=== PATIENT | female | born 1980 | race Caucasian/White ===

== ENCOUNTER 2021-05-02 16:09 | Inpatient (IN) | payer MEDICAID, SELFPAY ==
[2021-05-02 16:51] VITALS: BP 124/78; PULSE 78; RESP 17; TEMP 37.1; O2SAT 98
[2021-05-02 16:52] VITALS: BMI 27.6
[2021-05-02] MEDS: multivitamin therapeutic Tablet 1 TAB PO (18:57)
[2021-05-02] MEDS: OLANZapine 5 mg ODT PO (19:32)
[2021-05-02] MEDS: hyDROXYzine 25 mg Capsule 50 MG PO (19:32)
[2021-05-02 19:57] VITALS: BP 113/76; PULSE 78; RESP 16; TEMP 36.7; O2SAT 98
[2021-05-02] MEDS: ARIPiprazole 10 mg Tablet PO (21:31)
[2021-05-02] MEDS: trazodone 100 mg Tablet PO (21:31)
[2021-05-02] MEDS: gabapentin 300 mg Capsule 600 MG PO (21:31)
[2021-05-02] MEDS: BuSPIRONE 10 mg Tablet 20 MG PO (21:31)
[2021-05-03 06:00] VITALS: BP 82/45; PULSE 83; RESP 16; TEMP 36.6; O2SAT 98
[2021-05-03] MEDS: pantoprazole DR 40 mg Tablet PO (09:01)
[2021-05-03] MEDS: gabapentin 300 mg Capsule 600 MG PO ×3 (09:01→20:54)
[2021-05-03] MEDS: folic acid 1 mg Tablet PO (09:01)
[2021-05-03] MEDS: escitalopram 10 mg Tablet 20 MG PO (09:01)
[2021-05-03] MEDS: BuSPIRONE 10 mg Tablet 20 MG PO ×3 (09:01→20:54)
--- NOTE | 2021-05-03 09:29 | P.NPUHP_ITS ---
Providers/Chief Complaint Admitting Physician: Julian Flores MD Chief Complaint: OVERDOSE HPI NPU History of Present Illness Aria Badillo is a 41 year old female who presented to an outside hospital with reported concerns for alcohol intoxication and possible misuse of prescription medications, either intentionally or unintentionally, and self- injurious behavior versus suicide attempt. She was evaluated there for acute intoxication and additionally they reported she took a handful of medications, including Trazodone, Lexapro and Protonix. She was monitored for cardiac arrhythmia, bradycardia, etc. and monitored until she had gotten through half- lives for the medications. Her blood alcohol level, when she arrived at the outside hospital, was 540, and she had a very extensive deliberate cut to her upper right extremity; it did not involve deep structures but did involve single layer stitches/sutures number 10. She was transferred to [facility] and admitted to the neuropsychiatric unit for definitive treatment of those issues. She presents today reporting that she has had a significant issue with alcohol for some time. She relapsed and has been drinking a fifth of alcohol daily, at least. She denies any intentional ingestion but did endorse being suicidal, and did endorse cutting but denied it as a suicide attempt, reporting she has had issues with self-injurious behaviors for some time. She has had previous psychiatric hospitalization. She reports that she does not smoke cigarettes or use any other type of drugs. She endorses a history of anxiety, bipolar disorder, and depression. She reports that she has been taking her medication. Her medications were identified as Abilify, BuSpar, Lexapro, Neurontin, Trazodone, and Pantoprazole. She could not really identify if there had been any non-adherence to the medication, and so we discussed initially starting with her home medications. One issue we crossed was that she reports that the medications were not really working for her anxiety, and she said that the outside hospital gave her Xanax and that she was hoping that would be continued, but they did not write for Xanax when she left. PSYCHIATRIC HISTORY: As above. SUBSTANCE ABUSE HISTORY: As above. FAMILY HISTORY: She was not a great historian, so family history and some of the other histories were limited. DEVELOPMENTAL HISTORY: She denies any issues with her or delivery. She reports she learned to walk and talk and met her developmental milestones on time. She did report that she had some learning difficulties but had no clarity with that. PSYCHOSOCIAL HISTORY: LEGAL HISTORY: Denied. MEDICAL HISTORY: GERD and the lacerations. No other historical data. Meds NPU Home Medications Medication Instructions Recorded Confirmed Last Taken Type Multivitamin Therapeutic See Rx Instructions .ROUTE .COMPLEX 05/02/21 05/02/21 05/02/21 History aripiprazole [Abilify] 10 mg PO BEDTIME 05/02/21 05/02/21 Unknown History buspirone 20 mg PO TID 05/02/21 05/02/21 05/02/21 History 0531 escitalopram oxalate [Lexapro] 20 mg PO DAILY 05/02/21 05/02/21 05/02/21 History 20 mg folic acid 1 mg PO DAILY 05/02/21 05/02/21 05/02/21 History gabapentin [Neurontin] 600 mg PO TID 05/02/21 05/02/21 05/02/21 History 600 mg pantoprazole [Protonix] 40 mg PO DAILY 05/02/21 05/02/21 05/02/21 History 40 mg trazodone 100 mg PO BEDTIME 05/02/21 05/02/21 05/01/21 History 100 mg Allergies Allergy/AdvReac Type Severity Reaction Status Date / Time Penicillins Allergy Intermediate ALGY-Rash Verified 05/02/21 16:59 Sulfa (Sulfonamide Allergy Intermediate ALGY-Rash Verified 05/02/21 16:58 Antibiotics) PFSH NPU PFSH: Social History (Updated 05/02/21 @ 17:19 by Margo Coley RN) Alcohol intake: current Alcohol intake frequency: 3 or more drinks per day Alcohol type: hard liquor Desire information about alcohol rehabilitation?: Yes (wants to go to rehab) Counseling given: Yes Mental Status Exam MSE Comments: This is an overweight versus obese, white female, with hospital scrubs on, with limited grooming and eye contact. No abnormal movements, except for mild psychomotor agitation. Cooperative with exam in no acute distress. Speech was decreased rate and volume. Mood described as anxious; affect congruent. Thought process, organized. Thought content: patient denied any suicidal or homicidal ideation, there were no delusions reported or noted, patient denied any auditory or visual hallucinations. Attention, concentration, and memory appear intact but none were formally tested. She is alert and oriented times three. Insight and judgment are limited. Impulse control is impaired. Vitals/I&O/Wt Last Vital Signs Temp 97.8 F 05/03/21 06:00 Pulse 83 05/03/21 06:00 Resp 16 05/03/21 06:00 BP 82/45 05/03/21 06:00 Pulse Ox 98 05/03/21 06:00 Weight last 48 hrs Weight 73 kg A&P Assessment and plan (1) Alcohol dependence: Status: Acute (2) Anxiety: Status: Acute (3) Cluster B personality disorder in adult: Status: Acute Additional A&P Information This is a 41-year-old, white female, with a long history of alcohol addiction and behavioral dysregulation, who presents after an alcohol level of 540, and a self-inflicted cut to her right arm, at an outside hospital. 1. Continue current medication. 2. Encourage individual, group, and milieu therapy. 3. Continue q-15 minute checks for safety. 4. Recommend sober living treatment at the highest level of care to which the patient is willing to commit. Involuntary Hold Information 96 Hour Hold: 96 Hour Involuntary Admission: No Attestations NPU Medical Necessity Statement*: Inpatient hospitalization is medically necessary and the clinically appropriate intervention, at this time. We will monitor medications and make changes as indicated. Patient will be in the hospital for over two midnights. Likely length of stay is three to five days. Coding Level of Care Code Acute [employer] Officer for Kirsten Callaway Diagnoses Alcohol dependence F10.20 Anxiety F41.9 Cluster B personality disorder in adult F60.9
[2021-05-03] MEDS: hyDROXYzine 25 mg Capsule 50 MG PO ×2 (10:40→20:56)
[2021-05-03 14:00] VITALS: BP 85/52; PULSE 65; RESP 17; TEMP 36.9; O2SAT 98
[2021-05-03] MEDS: OLANZapine 5 mg ODT PO ×2 (14:17→20:54)
--- NOTE | 2021-05-03 14:20 | PC.NURSE ---
Pt reports anxiety and requesting medication. Pt given PRN Zydis. Pt took medication without complication.
[2021-05-03] MEDS: trazodone 100 mg Tablet PO (20:54)
[2021-05-03] MEDS: ARIPiprazole 10 mg Tablet PO (20:54)
[2021-05-03 21:22] VITALS: BP 91/59; PULSE 108; RESP 18; TEMP 36.7; O2SAT 96
[2021-05-04 06:00] VITALS: BP 91/60; PULSE 113; RESP 18; TEMP 37.2; O2SAT 98; BMI 27.6
[2021-05-04] MEDS: hyDROXYzine 25 mg Capsule 50 MG PO ×3 (06:36→18:30)
[2021-05-04] MEDS: OLANZapine 5 mg ODT PO (06:36)
[2021-05-04] MEDS: gabapentin 300 mg Capsule 600 MG PO ×3 (08:39→20:56)
[2021-05-04] MEDS: BuSPIRONE 10 mg Tablet 20 MG PO ×3 (08:40→20:56)
[2021-05-04] MEDS: pantoprazole DR 40 mg Tablet PO (08:40)
[2021-05-04] MEDS: folic acid 1 mg Tablet PO (08:40)
[2021-05-04] MEDS: escitalopram 10 mg Tablet 20 MG PO (08:40)
--- NOTE | 2021-05-04 13:13 | P.NPUPN_ITS ---
Subjective NPU Subjective: Interval history: Presents today reporting that she is invested in the idea of getting to some treatment facility to try to get herself back on track. We continue to discuss the fact that [facility] is likely a bad choice for her treatment given her alcohol addiction. We discussed working with treatment team the morning to make sure to be no all the options available for her ongoing treatment. She reports is tolerating her medications well otherwise. Mental Status Exam MSE Comments: This is an overweight versus obese, white female, with hospital scrubs on, with limited grooming and eye contact. No abnormal movements, except for mild psychomotor agitation. Cooperative with exam in no acute distress. Speech was decreased rate and volume. Mood described as anxious; affect congruent. Thought process, organized. Thought content: patient denied any suicidal or homicidal ideation, there were no delusions reported or noted, patient denied any auditory or visual hallucinations. Attention, concentration, and memory appear intact but none were formally tested. She is alert and oriented times three. Insight and judgment are limited. Impulse control is impaired. Vitals/I&O/Wt Last Vital Signs Temp 98.9 F 05/04/21 06:00 Pulse 113 H 05/04/21 06:00 Resp 18 05/04/21 06:00 BP 91/60 05/04/21 06:00 Pulse Ox 98 05/04/21 06:00 Weight last 48 hrs Weight 73 kg A&P Additional A&P Information (1) Alcohol dependence: (2) Anxiety: (3) Cluster B personality disorder in adult: Additional A&P Information This is a 41-year-old, white female, with a long history of alcohol addiction and behavioral dysregulation, who presents after an alcohol level of 540, and a self-inflicted cut to her right arm, at an outside hospital. 1. Continue current medication. 2. Encourage individual, group, and milieu therapy. 3. Continue q-15 minute checks for safety. 4. Recommend sober living treatment at the highest level of care to which the patient is willing to commit. Involuntary Hold Information 96 Hour Hold: 96 Hour Involuntary Admission: No Attestations NPU Medical Necessity Statement*: Inpatient hospitalization is medically necessary and the clinically appropriate intervention, at this time. We will monitor medications and make changes as indicated. Likely length of stay is 2-4 days. Coding Level of Care Code Acute Director Patient Accounting for Kirsten Callaway
[2021-05-04 14:00] VITALS: BP 93/57; PULSE 68; RESP 18; TEMP 36.6; O2SAT 98
[2021-05-04] MEDS: multivitamin therapeutic Tablet 1 TAB PO (17:16)
[2021-05-04 20:26] VITALS: BP 110/74; PULSE 62; RESP 14; TEMP 37.1; O2SAT 95
[2021-05-04] MEDS: ARIPiprazole 10 mg Tablet PO (20:56)
[2021-05-04] MEDS: trazodone 100 mg Tablet PO (20:57)
[2021-05-05] MEDS: OLANZapine 5 mg ODT PO ×2 (03:36→17:39)
--- NOTE | 2021-05-05 04:07 | PC.NURSE ---
Patient was given 5mg Zyprexa Zydus for extreme anxiety due to other paints being VERY loud and MANIC, pacing the fountain and generally being inconsiderate ( even though that patient has been canceled continually )
[2021-05-05 06:00] VITALS: BP 105/70; PULSE 110; RESP 18; TEMP 36.9; O2SAT 98
[2021-05-05] MEDS: hyDROXYzine 25 mg Capsule 50 MG PO ×2 (06:03→12:28)
[2021-05-05] MEDS: gabapentin 300 mg Capsule 600 MG PO ×3 (09:49→21:45)
[2021-05-05] MEDS: pantoprazole DR 40 mg Tablet PO (09:49)
[2021-05-05] MEDS: folic acid 1 mg Tablet PO (09:49)
[2021-05-05] MEDS: BuSPIRONE 10 mg Tablet 20 MG PO ×3 (09:50→21:45)
[2021-05-05] MEDS: escitalopram 10 mg Tablet 20 MG PO (09:50)
--- NOTE | 2021-05-05 12:31 | PC.NURSE ---
Pt reports anxiety 01/31. Pt reports she just spoke to Bingo Cashier and this caused her anxiety to increase. Pt requested anxiety medication. Pt given Vistaril 50 mg PO without complication.
--- NOTE | 2021-05-05 12:48 | NPU.GN ---
[facility] Unit Group Topic:Skinny Barrel / Discussion General Mood of Group:Aria did attend and participate in group. She was polite and social with others . Her hygiene was ok.
--- NOTE | 2021-05-05 13:23 | P.NPUPN_ITS ---
Subjective NPU Subjective: Interval history: Patient presents today reporting that she is feeling a little better. She reports that she did get a chance to talk to the treatment team and they are looking at options for sober living follow-up. She reports that she continues to have anxiety and that the difficult issue. We discussed the timeframe it might take for her 1/5 of liquor a day not have residual symptoms. However we discussed the possibility of adding propranolol 20 mg p.o. 3 times daily as needed and she understood and agreed proceed as documented in his note. Mental Status Exam MSE Comments: This is an overweight versus obese, white female, with hospital scrubs on, with limited grooming and eye contact. No abnormal movements. Cooperative with exam in no acute distress. Speech was decreased rate and volume. Mood described as anxious; affect congruent. Thought process, organized. Thought content: patient denied any suicidal or homicidal ideation, there were no delusions reported or noted, patient denied any auditory or visual hallucinations. Attention, concentration, and memory appear intact but none were formally tested. She is alert and oriented times three. Insight and judgment are limited. Impulse control is limited. Vitals/I&O/Wt Last Vital Signs Temp 98.4 F 05/05/21 06:00 Pulse 110 H 05/05/21 06:00 Resp 18 05/05/21 06:00 BP 105/70 05/05/21 06:00 Pulse Ox 98 05/05/21 06:00 A&P Additional A&P Information (1) Alcohol dependence: (2) Anxiety: (3) Cluster B personality disorder in adult: Additional A&P Information This is a 41-year-old, white female, with a long history of alcohol addiction and behavioral dysregulation, who presents after an alcohol level of 540, and a self-inflicted cut to her right arm, at an outside hospital. 1. Continue current medication. 2. Encourage individual, group, and milieu therapy. 3. Continue q-15 minute checks for safety. 4. Recommend sober living treatment at the highest level of care to which the patient is willing to commit. Involuntary Hold Information 96 Hour Hold: 96 Hour Involuntary Admission: No Attestations NPU Medical Necessity Statement*: Inpatient hospitalization is medically necessary and the clinically appropriate intervention, at this time. We will monitor medications and make changes as indicated. Likely length of stay is 2-4 days. Coding Level of Care Code Acute Community Health Outreach Worker for Chg Fwd
[2021-05-05 14:00] VITALS: BP 114/72; PULSE 67; RESP 18; TEMP 36.4; O2SAT 99
[2021-05-05] MEDS: multivitamin therapeutic Tablet 1 TAB PO (17:39)
[2021-05-05 21:33] VITALS: BP 112/75; PULSE 63; RESP 15; TEMP 36.7; O2SAT 96
[2021-05-05] MEDS: trazodone 100 mg Tablet PO (21:45)
[2021-05-05] MEDS: ARIPiprazole 10 mg Tablet PO (21:45)
[2021-05-06] MEDS: hyDROXYzine 25 mg Capsule 50 MG PO ×2 (05:58→12:02)
[2021-05-06 06:00] VITALS: BP 107/56; PULSE 99; RESP 18; TEMP 36.7; O2SAT 95
[2021-05-06] MEDS: BuSPIRONE 10 mg Tablet 20 MG PO ×3 (08:05→20:05)
[2021-05-06] MEDS: escitalopram 10 mg Tablet 20 MG PO (08:05)
[2021-05-06] MEDS: pantoprazole DR 40 mg Tablet PO (08:05)
[2021-05-06] MEDS: multivitamin therapeutic Tablet 1 TAB PO (08:05)
[2021-05-06] MEDS: gabapentin 300 mg Capsule 600 MG PO ×3 (08:05→20:05)
[2021-05-06] MEDS: folic acid 1 mg Tablet PO (08:05)
--- NOTE | 2021-05-06 13:09 | NPU.GN ---
[facility] Group Topic: Skinny Zhou General Mood of Group: Aria did attend and participate in group today. She was social and seemed to have a good mindset. Aria had good hygiene.
[2021-05-06 14:00] VITALS: BP 105/68; PULSE 62; RESP 16; TEMP 36.7; O2SAT 97
[2021-05-06] MEDS: OLANZapine 5 mg ODT PO (17:13)
--- NOTE | 2021-05-06 17:14 | PC.NURSE ---
Pt anxious and pacing the hallway with increasing speed. Pt given Zydis 5mg PO without complication.
--- NOTE | 2021-05-06 19:21 | P.NPUPN_ITS ---
Subjective NPU Subjective: Interval history: Patient presents today reporting that the efforts to get her into the regular Programs that she and the social work team were pursuing was not effective. She reports that this time her only option is to go home with outpatient services for drug and alcohol and or with connection coordinating limits available. She seems to be optimistic that she can stop drinking but we discussed our concerns about her level of drinking and the danger for bad outcome. We agreed we would discuss the possibility of discharge after the in the morning. Mental Status Exam MSE Comments: This is an overweight versus obese, white female, with hospital scrubs on, with limited grooming and eye contact. No abnormal movements. Cooperative with exam in no acute distress. Speech was decreased rate and volume. Mood described as feeling better; affect congruent. Thought process, organized. Thought content: patient denied any suicidal or homicidal ideation, there were no delusions reported or noted, patient denied any auditory or visual hallucinations. Attention, concentration, and memory appear intact but none were formally tested. She is alert and oriented times three. Insight and judgment are limited, but improving. Impulse control is limited. Vitals/I&O/Wt Last Vital Signs Temp 98.0 F 05/06/21 14:00 Pulse 62 05/06/21 14:00 Resp 16 05/06/21 14:00 BP 105/68 05/06/21 14:00 Pulse Ox 97 05/06/21 14:00 A&P Additional A&P Information (1) Alcohol dependence: (2) Anxiety: (3) Cluster B personality disorder in adult: Additional A&P Information This is a 41-year-old, white female, with a long history of alcohol addiction and behavioral dysregulation, who presents after an alcohol level of 540, and a self-inflicted cut to her right arm, at an outside hospital. 1. Continue current medication. 2. Encourage individual, group, and milieu therapy. 3. Continue q-15 minute checks for safety. 4. Recommend sober living treatment at the highest level of care to which the patient is willing to commit. Involuntary Hold Information 96 Hour Hold: 96 Hour Involuntary Admission: No Attestations NPU Medical Necessity Statement*: Inpatient hospitalization is medically necessary and the clinically appropriate intervention, at this time. We will monitor medications and make changes as indicated. Likely length of stay is 1-3 days. Coding Level of Care Code Acute Die Storage Clerk for Kirsten Callaway
[2021-05-06 19:35] VITALS: BP 131/80; PULSE 91; RESP 15; TEMP 37.2; O2SAT 98
[2021-05-06] MEDS: trazodone 100 mg Tablet PO (20:05)
[2021-05-06] MEDS: ARIPiprazole 10 mg Tablet PO (20:05)
[2021-05-07] MEDS: hyDROXYzine 25 mg Capsule 50 MG PO ×3 (00:01→11:51)
--- NOTE | 2021-05-07 00:05 | PC.NURSE ---
PT REQUESTING ANXIETY MED, VISTARIL 50MG PO GIVEN.
[2021-05-07 06:00] VITALS: BP 110/78; PULSE 98; RESP 18; TEMP 37.1; O2SAT 97
--- NOTE | 2021-05-07 06:04 | PC.NURSE ---
pt has taken a shower this morning. requested vistaril. pt states she is a little anxious cause she might be able to go home today. pt states it's going home that makes her anxious so much as the waiting to hear if she is able to go.
[2021-05-07] MEDS: gabapentin 300 mg Capsule 600 MG PO (08:36)
[2021-05-07] MEDS: escitalopram 10 mg Tablet 20 MG PO (08:36)
[2021-05-07] MEDS: BuSPIRONE 10 mg Tablet 20 MG PO (08:36)
[2021-05-07] MEDS: folic acid 1 mg Tablet PO (08:36)
[2021-05-07] MEDS: pantoprazole DR 40 mg Tablet PO (08:36)
--- NOTE | 2021-05-07 11:11 | NPU.GN ---
[facility] Unit Group Topic:Checkers General Mood of Group: Aria did attend group and participated . Her hygiene is good and she was social with others.
--- NOTE | 2021-05-07 12:13 | W.PM.NPUDCS ---
Diagnoses at Discharge Discharge Diagnosis (1) Alcohol dependence: Status: Acute (2) Anxiety: Status: Acute (3) Cluster B personality disorder in adult: Status: Acute Reason for Visit Reason for Visit: OVERDOSE Brief History: History of Present Illness Aria Badillo is a 41 year old female who presented to an outside hospital with reported concerns for alcohol intoxication and possible misuse of prescription medications, either intentionally or unintentionally, and self-injurious behavior versus suicide attempt. She was evaluated there for acute intoxication and additionally they reported she took a handful of medications, including Trazodone, Lexapro and Protonix. She was monitored for cardiac arrhythmia, bradycardia, etc. and monitored until she had gotten through half-lives for the medications. Her blood alcohol level, when she arrived at the outside hospital, was 540, and she had a very extensive deliberate cut to her upper right extremity; it did not involve deep structures but did involve single layer stitches/sutures number 10. She was transferred to [facility] and admitted to the neuropsychiatric unit for definitive treatment of those issues. She presents today reporting that she has had a significant issue with alcohol for some time. She relapsed and has been drinking a fifth of alcohol daily, at least. She denies any intentional ingestion but did endorse being suicidal, and did endorse cutting but denied it as a suicide attempt, reporting she has had issues with self-injurious behaviors for some time. She has had previous psychiatric hospitalization. She reports that she does not smoke cigarettes or use any other type of drugs. She endorses a history of anxiety, bipolar disorder, and depression. She reports that she has been taking her medication. Her medications were identified as Abilify, BuSpar, Lexapro, Neurontin, Trazodone, and Pantoprazole. She could not really identify if there had been any non-adherence to the medication, and so we discussed initially starting with her home medications. One issue we crossed was that she reports that the medications were not really working for her anxiety, and she said that the outside hospital gave her Xanax and that she was hoping that would be continued, but they did not write for Xanax when she left. PSYCHIATRIC HISTORY: As above. SUBSTANCE ABUSE HISTORY: As above. FAMILY HISTORY: She was not a great historian, so family history and some of the other histories were limited. DEVELOPMENTAL HISTORY: She denies any issues with her or delivery. She reports she learned to walk and talk and met her developmental milestones on time. She did report that she had some learning difficulties but had no clarity with that. PSYCHOSOCIAL HISTORY: LEGAL HISTORY: Denied. MEDICAL HISTORY: GERD and the lacerations. No other historical data. Hospital Course Hospital Course She slowly acclimated to the individual, group and milieu therapies provided. We continued her previous medications and assisted in her detox from alcohol given her blood alcohol being 540 at the outside hospital. On a couple of occasions she lobbied to get Xanax as treatment for her anxiety but we discussed the multiple reasons why it was a bad idea. She was getting Zyprexa which appeared to be helpful and the question remains whether to leave it with her already significant polypharmacy after discharge or consider discontinuing the Abilify. We advised her to take this question up with the outside provider given she was doing better as is but agreed that long-term one of them could i.e. the Abilify could/should be discontinued. She showed significant improvement and was able to contract for safety outside of the hospital prior to discharge. At the outside hospital, patient had routine laboratory studies which were within normal limits except for few outliers. Additionally there was a general medical evaluation which was also within normal limits and revealed no new acute processes. Discharge Summary: At the time of discharge, she denied psychosis or lethality. Mood and anxiety were well managed. Patient endorsed a plan to avoid all drugs of abuse and follow-up with the aftercare recommendations of the treatment team. Patient was evaluated and deemed to be absent credible lethality, and had achieved the maximum benefit from an inpatient hospitalization, so was discharged. Involuntary Hold Information 96 Hour Hold: 96 Hour Involuntary Admission: No Mental Status Exam MSE Comments: This is an overweight versus obese, white female, with hospital scrubs on, with adequate grooming and eye contact. No abnormal movements. Cooperative with exam in no acute distress. Speech was more normal rate and volume. Mood described as better; affect congruent. Thought process, organized. Thought content: patient denied any suicidal or homicidal ideation, there were no delusions reported or noted, patient denied any auditory or visual hallucinations. Attention, concentration, and memory appear intact but none were formally tested. She is alert and oriented times three. Insight and judgment are limited, but improving. Impulse control is limited. Discharge Data Vitals: Last Vital Signs Temp 98.7 F 12/15/21 06:00 Pulse 98 05/07/21 06:00 Resp 18 05/07/21 06:00 BP 110/78 05/07/21 06:00 Pulse Ox 97 05/07/21 06:00 Discharge Plan Discharge Patient Disposition: Home Condition: Stable Prescriptions: New olanzapine 5 mg Tablet,Disintegrating 5 mg PO DAILY PRN (Reason: Agitation/Psychosis) 30 Days Qty: 30 RF: 1 hydroxyzine pamoate 25 mg Capsule 50 mg PO Q6H PRN (Reason: Anxiety) 30 Days Qty: 180 RF: 1 Continued Neurontin 600 mg tablet 600 mg PO TID RF: 0 trazodone 100 mg tablet 100 mg PO BEDTIME RF: 0 Protonix 40 mg tablet,delayed release (DR/EC) 40 mg PO DAILY RF: 0 buspirone 10 mg tablet 20 mg PO TID RF: 0 folic acid 1 mg Tablet 1 mg PO DAILY RF: 0 Lexapro 20 mg tablet 20 mg PO DAILY RF: 0 Abilify 10 mg tablet 10 mg PO BEDTIME RF: 0 Multivitamin Therapeutic 1 tab See Rx Instructions .ROUTE .COMPLEX RF: 0 Discharge Orders: Discharge Order (Routine); Ordered 05/07/21 Ordered By: Julian Flores Referrals: [facility] [Other] - 1-3 days (Walk into to complete open access paperwork any time Wednesday-Wednesday from 8am to 4pm. Please bring a mask, photo ID, social security card, medications list from pharmacy and any over the counter medications, mail with name and address and proof of income. Services are on a sliding scale based on income. ) Discharge Diet: Regular Discharge Activity: Resume usual activity Patient Instructions: Opioid Safety Discharge Attestations NPU Time Spent in Discharge Care*: less than 30 min Specific Discharge Activities: Specific discharge activities: educating patient, discussing with geriatric case manager/social workers/dc planners, documenting/other paperwork and evaluating patient/reviewing data Coding Level of Care Code Acute Chg FW DC note Diagnoses Alcohol dependence F10.20 Anxiety F41.9 Cluster B personality disorder in adult F60.9
[2021-05-07 12:24] VITALS: BP 110/78; PULSE 98; RESP 18; TEMP 37.1; O2SAT 97
== END 2021-05-07 12:54 | disposition home or self-care (01) | DRG 880 ==
PROVIDERS: Admitting Provider Psychiatry & Neurology Psychiatry; Visit Provider Psychiatry & Neurology Psychiatry
DX: F41.9 Anxiety disorder, unspecified (principal); R45.851 Suicidal ideations; F10.20 Alcohol dependence, uncomplicated; F31.9 Bipolar disorder, unspecified; F60.89 Other specific personality disorders; Z91.52 Personal history of nonsuicidal self-harm
CPT/HCPCS: 97150; 97165